=== PATIENT | female | born 1975 | race African-American/Black ===

== ENCOUNTER → 2017-02-16 | Day surgery (SDC) | payer OTHER ==
[~2017-02-16] VITALS: Ht 162.6 cm; Wt 113.4 kg
[~2017-02-16] MED LIST: LITHIUM CARBON450 M1 PO; SEROQUEL300 M1 PO; VISTARIL50 M1 PO
--- NOTE | 2017-02-16 15:14 | Operative Report ---
Operative/Inv Procedure Report Surgery Date: 02/16/17 Name of Procedure: Bilateral breast reduction with free nipple technique Pre-Operative Diagnosis: Breast hypertrophy Post-Operative Diagnosis: Same Estimated Blood Loss: scant (150) Surgeon/Cooking Appliance Repair Technician: MONSE CASTILLO MD Anesthesia: general endotracheal tube Operative/Procedure Note Note: Patient was counseled Lizama procedure the alternatives the risks and the expected outcomes as relates to request for surgical intervention to treat symptomatic chronic upper back and shoulder pain duction technique. Patient uses tobacco. The nipple sternal distance of 43 cm. We discussed and the patient has accepted a free nipple technique knowing she will not be able to breast-feed have central sensation of the nipple areola and not erectile and insensate. There is risk of partial complete loss of the nipple areola liters often pink scaring within the brown tissue. No guarantees were given in regards to cup size. Patient was advised further weight loss could result in breasts are too small for her liking and cannot be repaired without an [id number] costs for breast augmentation. Scars are definitely permanent invisible might be unsightly or symptomatic we discussed infection bleeding as well in addition to asymmetry which will be certain. The patient was marked in the standing position. Her to the operating room placed supine on the table of Venodyne boots placed intravenous Avelox were given and then general endotracheal anesthesia was established. The chest was prepped in usual sterile fashion. The was de-epithelialized as well as an inferior mound. A resection was then carried out full-thickness between these 2 after removing the nipple areola complex as a graft. 3 layer closure was then carried out incorporating this inferior pedicle for fullness as well as the superior de-epithelialized inferior V segment of tissue. The procedure was extensive in the time required required tdue to the excessive nature of the size of the breasts in handling, planning and excison, approx 1800 grams per side.
== END ==
LOC: STS 07:00
DX: N62 Hypertrophy of breast (principal); M54.89 Other dorsalgia; F31.9 Bipolar disorder, unspecified; E66.9 Obesity, unspecified; F17.200 Nicotine dependence, unspecified, uncomplicated; Z68.41 Body mass index [BMI] 40.0-44.9, adult
CPT/HCPCS: 88305; J0131; J0690; J2250